=== PATIENT | female | born 1985 | race Caucasian/White ===

== ENCOUNTER → 2017-10-16 | Outpatient (CLI) | payer OTHER ==
[~2017-10-16] MED LIST: PRENTAB26 PO
[2017-10-16 18:05] LABS: PREG INTERNAL NEGATIVE QC NEG CLEAR BACKGROUND; PREG INTERNAL POSITIVE QC POS CONTROL LINE
== END | disposition home or self-care (01) ==
LOC: C.LABMFLN 11:58
PROVIDERS: ATTEND Physician Assistant
DX: N91.2 Amenorrhea, unspecified (principal)

== ENCOUNTER 2017-11-18 18:36 | Emergency (ER) | payer OTHER ==
[~2017-11-18] VITALS: Ht 170.2 cm; Wt 116.3 kg
[2017-11-18 18:38] VITALS: Ht 170.2 cm; Wt 116.3 kg
--- NOTE | 2017-11-18 19:12 | EMERGENCY ROOM VISIT NOTE ---
History Report prepared by Ric: Arun Elias Under the Supervision of: Dr. Celso Plunkett M.D. First contact with patient: 18:49 Chief Complaint: COUGH Stated Complaint: COUGH,TROUBLE BREATHING,NAUSEA,DIZZY Nursing Triage Summary: "For the last week I have been dizzy, lightheaded, and coughing. I think I have the flu." Reports fevers, chills, and body aches at home. Pt is 9 weeks . History of Present Illness The patient is a 31 year old female who presents to the Emergency Room with complaints of a worsening cough that began five days ago. She rates her discomfort as a 5/10 in severity. The patient states that starting five days ago , she has been fatigued, dizzy, and lightheaded. She reports that she has been experiencing a worsening cough that is intermittently productive and tight. The patient states that she also has been intermittently experiencing upper abdominal pain that she describes as a stabbing sensation. She reports that she has been nauseous, but is unsure if it is due to the fact that she is 9 weeks with her second child. The patient states that as she was walking in to the ED, she felt as if she was going to have a syncopal episode. She denies vaginal discharge or bleeding. No chest pain or difficulty breathing Source of History: patient Onset: 5 days ago Position: other (global) Symptom Intensity: 5/10 Quality: other (intermittently productive and tight) Timing: constant Associated Symptoms: + nausea, + abdominal pain, + fatigue Review of Systems See HPI for pertinent positives and negatives. A total of ten systems were reviewed and were otherwise negative. Past Medical & Surgical Medical Problems: (1) 2 Family History Patient reports no known family medical history. Social History Smoking Status: Never Smoker Alcohol Use: occasionally Marital Status: Housing Status: lives with significant other Current/Historical Medications Scheduled Cephalexin Monohydrate (Keflex), 500 MG PO BID Cholecalciferol (Vitamin D3), 2,500 UNITS PO DAILY Multivit/Min/Iron/Fol Ac/Pren ( Vitamin), 1 TAB PO DAILY Scheduled PRN Ondansetron Hcl (Zofran), 4 MG PO Q6H PRN for Nausea Allergies Coded Allergies: No Known Allergies (Unverified , 10/23/13) Physical Exam Vital Signs Date Time Temp Pulse Resp B/P (MAP) Pulse Ox O2 Delivery O2 Flow Rate FiO2 11/18/17 22:37 86 18 143/73 98 11/18/17 21:23 36.8 79 20 134/80 98 Room Air 11/18/17 18:38 99 Room Air 11/18/17 18:38 37.0 98 18 123/78 100 Room Air Physical Exam GENERAL: Awake, alert, well-appearing, in no distress, obese HENT: Normocephalic, Atraumatic. no hemotympanum bilaterally, garza sign negative bilaterally. Oropharynx unremarkable. EYES: Normal conjunctiva. Sclera non-icteric. PERRL bilaterally. EOMI bilaterally. NECK: Supple. No nuchal rigidity. FROM. No JVD. No C-spine tenderness. RESPIRATORY: Clear to auscultation. No wheezes, rhonchi or rales bilaterally. CARDIAC: Regular rate, normal rhythm. Extremities warm and well perfused. Equal palpable radial pulses to the bilateral upper extremities. Equal palpable DP pulses to the bilateral lower extremities. ABDOMEN: Soft, non-distended. No tenderness to palpation. No rebound or guarding. No masses. Rovsig Negative. RECTAL: Deferred. MUSCULOSKELETAL: Chest examination reveals no tenderness. The back is symmetrical on inspection without obvious abnormality. There is no CVA tenderness to palpation. No joint edema. LOWER EXTREMITIES: Calves are equal size bilaterally and non-tender. No edema. No discoloration. NEURO: Normal sensorium. No sensory or motor deficits noted. No pronator drift. No facial droop. No dysarthria. SKIN: No rash or jaundice noted. : Scant discharge from cervix. No dilatation on cervical os. No bleeding. No adnexal or cervical motion tenderness. Medical Decision & Procedures ER Provider Diagnostic Interpretation: Radiology results as stated below per my review and radiologist interpretation: <14 WKS SINGLE CLINICAL HISTORY: abdominal pain nausea TECHNIQUE: Ultrasound COMPARISON STUDY: None FINDINGS: Evidence for a single, viable intrauterine . Estimated gestational age is 9 weeks. heart rate is confirmed. Right ovary measures 2.9 cm at maximum with the left ovary measuring 3.3 cm at maximum. Vascular flow is confirmed bilaterally. There is a 2 cm corpus luteum cyst within the left ovary. IMPRESSION: Single, viable intrauterine estimated at 9 weeks gestational age. Left ovarian corpus luteum cyst. Normal vascular flow is confirmed to both ovaries The above report was generated using voice recognition software. It may contain grammatical, syntax or spelling errors. Electronically signed by: Kali Smith M.D. 11/18/2017 8:19 PM Dictated Date/Time: 11/18/2017 8:15 PM Laboratory Results 11/18/17 19:10 Red Blood Count 4.49, Mean Corpuscular Volume 83.3, Mean Corpuscular Hemoglobin 28.3, Mean Corpuscular Hemoglobin Concent 34.0, Mean Platelet Volume 9.1, Neutrophils (%) (Auto) 61.6, Lymphocytes (%) (Auto) 29.3, Monocytes (%) (Auto) 7.1, Eosinophils (%) (Auto) 1.5, Basophils (%) (Auto) 0.4, Neutrophils # (Auto) 4.84, Lymphocytes # (Auto) 2.30, Monocytes # (Auto) 0.56, Eosinophils # (Auto) 0.12, Basophils # (Auto) 0.03 11/18/17 19:10 Test 11/18/17 00:00 11/18/17 19:10 11/18/17 21:10 Urine Color YELLOW Urine Appearance TURBID (CLEAR) Urine pH 7.0 (4.5-7.5) Urine Specific [place] 1.018 (1.000-1.030) Urine Protein NEG (NEG) Urine Glucose (UA) NEG (NEG) Urine Ketones NEG (NEG) Urine Occult Blood NEG (NEG) Urine Nitrite NEG (NEG) Urine Bilirubin NEG (NEG) Urine Urobilinogen NEG (NEG) Urine Leukocyte Esterase MODERATE (NEG) Urine WBC (Auto) 5-10 /hpf (0-5) Urine RBC (Auto) 0-4 /hpf (0-4) Urine Hyaline Casts (Auto) 1-5 /lpf (0-5) Urine Epithelial Cells (Auto) >30 /lpf (0-5) Urine Bacteria (Auto) 1+ (NEG) White Blood Count 7.86 K/uL (4.8-10.8) Red Blood Count 4.49 M/uL (4.2-5.4) Hemoglobin 12.7 g/dL (12.0-16.0) Hematocrit 37.4 % (37-47) Mean Corpuscular Volume 83.3 fL (80-100) Mean Corpuscular Hemoglobin 28.3 pg (25-34) Mean Corpuscular Hemoglobin Concent 34.0 g/dl (32-36) Platelet Count 220 K/uL (130-400) Mean Platelet Volume 9.1 fL (7.4-10.4) Neutrophils (%) (Auto) 61.6 % Lymphocytes (%) (Auto) 29.3 % Monocytes (%) (Auto) 7.1 % Eosinophils (%) (Auto) 1.5 % Basophils (%) (Auto) 0.4 % Neutrophils # (Auto) 4.84 K/uL (1.4-6.5) Lymphocytes # (Auto) 2.30 K/uL (1.2-3.4) Monocytes # (Auto) 0.56 K/uL (0.11-0.59) Eosinophils # (Auto) 0.12 K/uL (0-0.5) Basophils # (Auto) 0.03 K/uL (0-0.2) RDW Standard Deviation 43.9 fL (36.4-46.3) RDW Coefficient of Variation 14.5 % (11.5-14.5) Immature Granulocyte % (Auto) 0.1 % Immature Granulocyte # (Auto) 0.01 K/uL (0.00-0.02) Anion Gap 6.0 mmol/L (3-11) Est Creatinine Clear Calc Drug Dose 170.9 ml/min Estimated GFR () 139.8 Estimated GFR (Non- 120.6 BUN/Creatinine Ratio 13.0 (10-20) Calcium Level 8.8 mg/dl (8.5-10.1) Human Chorionic Gonadotropin, Quant 93286 mIU/mL Influenza Type A Antigen Neg for Influ A (NEG) Influenza Type B Antigen Neg for Influ B (NEG) Date/Time Source Procedure Growth Status 11/18/17 21:10 Vaginal Swab Trichomonas Preparation - Final Complete Laboratory results reviewed by hi ED Course 1899: The patient was evaluated in room A11B. A complete history and physical exam was performed. 2108: I reevaluated the patient and performed a exam. Her UA results show a possible UTI. I will start her on antibiotics. Serial abdominal exams show no pain on palpation of the abdomen. Ultrasound showed a live intrauterine of a left ovarian cyst. Labs within normal limits. Discussed with the patient given that her lung exam is normal her vitals are stable and her labs are normal we'll not do chest x-ray at this time due to her being . Patient is in agreement. Influenza negative. Patient discharged home prescription Keflex for a symptomatic. In that she is . Return precautions discussed with patient and at bedside. All the questions were answered. Written and verbal discharge instructions given to the patient. Patient agrees with and understands the plan. Medical Decision Her UA results show a possible UTI. I will start her on antibiotics. Serial abdominal exams show no pain on palpation of the abdomen. Ultrasound showed a live intrauterine of a left ovarian cyst. Labs within normal limits. Discussed with the patient given that her lung exam is normal her vitals are stable and her labs are normal we'll not do chest x-ray at this time due to her being . Patient is in agreement. Influenza negative. Patient discharged home prescription Keflex for a symptomatic. In that she is . Return precautions discussed with patient and at bedside. All the questions were answered. Written and verbal discharge instructions given to the patient. Patient agrees with and understands the plan. Medication Reconcilliation Current Medication List: was personally reviewed by me Blood Pressure Screening Patient's blood pressure: Normal blood pressure Impression Primary Impression: UTI in Additional Impressions: Abdominal pain in URI (upper respiratory infection) Scribe Attestation The scribe's documentation has been prepared under my direction and personally reviewed by me in its entirety. I confirm that the note above accurately reflects all work, treatment, procedures, and medical decision making performed by me. The chart was completed utilizing [employer] Speech voice recognition software. Grammatical errors, random word insertions, pronoun errors, and incomplete sentences are an occasional consequence of this system due to software limitations, ambient noise, and hardware issues. Any formal questions or concerns about the content, text, or information contained within the body of this dictation should be directly addressed to the physician for clarification. Departure Information Dispostion Home / Self-Care Prescriptions Cephalexin Monohydrate (Keflex) 500 Mg Cap 500 MG PO BID for 7 Days, #14 CAP Prov: Celso Plunkett M.D. 11/18/17 Referrals Trista James (PCP) Forms HOME CARE DOCUMENTATION FORM, IMPORTANT VISIT INFORMATION Patient Instructions Abdominal Pain - [facility], ED URI Viral, ED UTI Cystitis Female, My [facility] Problem Qualifiers
[2017-11-18 19:24] LABS: BASO % 0.4 %; BASO ABS # 0.03 K/uL (0-0.2); EOS % 1.5 %; EOS ABS # 0.12 K/uL (0-0.5); HEMATOCRIT 37.4 % (37-47); HEMOGLOBIN 12.7 g/dL (12.0-16.0); IG# 0.01 K/uL (0.00-0.02); LYMPH % 29.3 %; MEAN CELL VOLUME 83.3 fL (80-100); MEAN CORPUSCULAR HEMOGLOBIN 28.3 pg (25-34); MEAN PLATELET VOLUME 9.1 fL (7.4-10.4); MONO % 7.1 %; MONO ABS # 0.56 K/uL (0.11-0.59); NEUT % 61.6 %; NEUT ABS # 4.84 K/uL (1.4-6.5); PLATELET COUNT 220 K/uL (130-400); RED CELL DISTRIBUTION WIDTH CV 14.5 % (11.5-14.5); RED CELL DISTRIBUTION WIDTH SD 43.9 fL (36.4-46.3); WHITE BLOOD COUNT 7.86 K/uL (4.8-10.8)
[2017-11-18] MEDS ORDERED: CHOL1000 PO (19:24)
[2017-11-18] MEDS ORDERED: ONDA4TAB46 PO (19:26)
[2017-11-18 19:43] LABS: CALCIUM 8.8 mg/dl (8.5-10.1); CREATININE 0.64 mg/dl (0.60-1.20); POTASSIUM 3.5 mmol/L (3.5-5.1)
[2017-11-18 20:16] LABS: INFLUENZA B ANTIGEN Neg for Influ B (NEG)
--- NOTE | 2017-11-18 20:20 | DIAGNOSTIC IMAGING REPORT ---
<14 WKS SINGLE CLINICAL HISTORY: abdominal pain nausea TECHNIQUE: Ultrasound COMPARISON STUDY: None FINDINGS: Evidence for a single, viable intrauterine . Estimated gestational age is 9 weeks. heart rate is confirmed. Right ovary measures 2.9 cm at maximum with the left ovary measuring 3.3 cm at maximum. Vascular flow is confirmed bilaterally. There is a 2 cm corpus luteum cyst within the left ovary. IMPRESSION: Single, viable intrauterine estimated at 9 weeks gestational age. Left ovarian corpus luteum cyst. Normal vascular flow is confirmed to both ovaries The above report was generated using voice recognition software. It may contain grammatical, syntax or spelling errors. Electronically signed by: Kali Smith M.D. 11/18/2017 8:19 PM Dictated Date/Time: 11/18/2017 8:15 PM
[2017-11-18 21:23] VITALS: TEMP 36.8
[2017-11-18] MEDS ORDERED: CEPH500C PO (21:58)
[2017-11-18 22:37] VITALS: BP 143/73; PULSE 86; O2SAT 98
== END 2017-11-18 22:26 | disposition home or self-care (01) ==
LOC: C.EDB 18:37 → C.EDA 22:26
DX: O23.91 Unspecified genitourinary tract infection in pregnancy, first trimester (principal); O99.511 Diseases of the respiratory system complicating pregnancy, first trimester; J06.9 Acute upper respiratory infection, unspecified; R10.9 Unspecified abdominal pain; Z3A.09 9 weeks gestation of pregnancy

== ENCOUNTER → 2017-11-27 | Outpatient (CLI) | payer OTHER ==
[~2017-11-27] MED LIST changes: +CHOL1000 PO; +ONDA4TAB46 PO
== END | disposition home or self-care (01) ==
LOC: C.PAPS 13:55
PROVIDERS: ATTEND Obstetrics & Gynecology
DX: Z12.4 Encounter for screening for malignant neoplasm of cervix (principal)

== ENCOUNTER → 2017-11-27 | Outpatient (CLI) | payer OTHER ==
[2017-11-27 13:11] LABS: BASO % 0.2 %; BASO ABS # 0.01 K/uL (0-0.2); EOS % 1.3 %; EOS ABS # 0.08 K/uL (0-0.5); HEMATOCRIT 39.9 % (37-47); HEMOGLOBIN 13.5 g/dL (12.0-16.0); IG# 0.01 K/uL (0.00-0.02); LYMPH % 29.4 %; LYMPH ABS # 1.85 K/uL (1.2-3.4); MEAN CELL VOLUME 83.6 fL (80-100); MEAN CORPUSCULAR HEMOGLOBIN 28.3 pg (25-34); MEAN CORPUSCULAR HGB CONC 33.8 g/dl (32-36); MEAN PLATELET VOLUME 9.4 fL (7.4-10.4); MONO % 5.4 %; MONO ABS # 0.34 K/uL (0.11-0.59); NEUT % 63.5 %; NEUT ABS # 4.01 K/uL (1.4-6.5); PLATELET COUNT 237 K/uL (130-400); RED CELL DISTRIBUTION WIDTH CV 14.7 % (11.5-14.5); RED CELL DISTRIBUTION WIDTH SD 45.3 fL (36.4-46.3)
== END | disposition home or self-care (01) ==
LOC: C.LAB1850 10:30
PROVIDERS: ATTEND Obstetrics & Gynecology
DX: Z34.81 Encounter for supervision of other normal pregnancy, first trimester (principal); Z31.438 Encounter for other genetic testing of female for procreative management; Z3A.00 Weeks of gestation of pregnancy not specified

== ENCOUNTER → 2017-12-15 | Outpatient (CLI) | payer OTHER ==
[2017-12-15 19:43] LABS: INFLUENZA A PCR POS for Influ A (NEG); INFLUENZA B PCR Neg for Influ B (NEG)
== END | disposition home or self-care (01) ==
LOC: C.LABMFLN 17:46
PROVIDERS: ATTEND Physician Assistant
DX: R11.0 Nausea (principal)

== ENCOUNTER → 2018-01-08 | Outpatient (CLI) | payer OTHER | END | disposition home or self-care (01) | LOC: C.LAB1850 10:00 | PROVIDERS: ATTEND Obstetrics & Gynecology | DX: Z34.82 Encounter for supervision of other normal pregnancy, second trimester (principal) ==

== ENCOUNTER → 2018-06-01 | Outpatient (CLI) | payer OTHER | END | disposition home or self-care (01) | LOC: C.LABSPEC 15:38 | PROVIDERS: ATTEND Obstetrics & Gynecology | DX: Z34.83 Encounter for supervision of other normal pregnancy, third trimester (principal) ==

== ENCOUNTER 2018-06-23 08:07 | Inpatient (IN) | payer OTHER ==
[~2018-06-23] VITALS: Ht 170.2 cm; Wt 114.5 kg
[2018-06-23] MEDS ORDERED: LACTATED RINGER'S 1000ML 1,000 ML IV SCH (08:34)
[2018-06-23] MEDS ORDERED: LACTATED RINGER'S 1000ML 1,000 ML IV PRN (08:34)
[2018-06-23 09:07] LABS: HEMATOCRIT 36.9 % (37-47); MEAN CELL VOLUME 83.5 fL (80-100); MEAN CORPUSCULAR HEMOGLOBIN 27.1 pg (25-34); MEAN CORPUSCULAR HGB CONC 32.5 g/dl (32-36); MEAN PLATELET VOLUME 9.7 fL (7.4-10.4); PLATELET COUNT 246 K/uL (130-400); RED CELL DISTRIBUTION WIDTH CV 14.9 % (11.5-14.5); RED CELL DISTRIBUTION WIDTH SD 45.1 fL (36.4-46.3); WHITE BLOOD COUNT 8.55 K/uL (4.8-10.8)
[2018-06-23] MEDS ORDERED: BUPIVACAINE 0.25% 30 ML VIAL ONE ×2 (09:35→12:55)
[2018-06-23] MEDS ORDERED: FENTANYL 2MCG/ML ROPIV 1.25MG/ML 100ML BAG ONE (09:36)
[2018-06-23] MEDS ORDERED: FENTANYL CITRATE INJ 50 MCG/1 ML 2 ML VIAL ONE ×2 (09:36→12:56)
[2018-06-23] MEDS ORDERED: EpHEDrine SULFATE INJ 50 MG/ML AMP ONE (09:36)
[2018-06-23] MEDS ORDERED: OXYTOCIN 30 UNITS/500ML NSS IV ONE (09:38)
[2018-06-23] MEDS ORDERED: LACTATED RINGER'S 1000ML 500 ML IV PRN ×2 (10:32→10:43)
[2018-06-23] MEDS ORDERED: NALOXONE HCL INJ 1 MG in SODIUM CHLORIDE 0.9% 1000ML 1,000 ML IV PRN (10:32)
[2018-06-23] MEDS ORDERED: NALBUPHINE HCL INJ 10 MG/ML 1ML AMP IV PRN (10:45)
[2018-06-23] MEDS ORDERED: NALOXONE HCL INJ 0.4 MG/1 ML VIAL/CARP IV PRN (10:45)
[2018-06-23] MEDS ORDERED: FENTANYL 2MCG/ML ROPIV 1.25MG/ML 100ML BAG EPI PRN (10:45)
[2018-06-23] MEDS ORDERED: DiphenhydrAMINE HCL 50 MG/ML VIAL IV PRN (10:45)
[2018-06-23] MEDS ORDERED: ONDANSETRON INJ 2 MG/ML 2 ML VIAL IV PRN (10:45)
[2018-06-23] MEDS ORDERED: OXYTOCIN 30 UNITS/500ML NSS IV PRN ×2 (10:45→14:15)
[2018-06-23] MEDS ORDERED: EpHEDrine SULFATE INJ 50 MG/ML AMP IV PRN (10:45)
[2018-06-23 11:27] VITALS: Ht 170.2 cm; Wt 114.5 kg
[2018-06-23] MEDS ORDERED: METHYLERGONOVINE MALEATE 0.2 MG/ML AMP ONE (13:59)
[2018-06-23] MEDS ORDERED: METHYLERGONOVINE MALEATE 0.2 MG/ML AMP IM ONE (14:15)
[2018-06-23] MEDS ORDERED: OXYTOCIN INJ 10 UNITS/ML VIAL IM ONE (14:15)
[2018-06-23] MEDS ORDERED: ACETAMINOPHEN 325 MG TAB PO PRN (14:15)
[2018-06-23] MEDS ORDERED: SUPERCREAM 0.870 % 15GM JAR EXT PRN (14:15)
[2018-06-23] MEDS ORDERED: MISOPROSTOL 200 MCG TAB PR SCH (14:15)
[2018-06-23] MEDS ORDERED: LANOLIN OINT EXT PRN (14:15)
[2018-06-23] MEDS ORDERED: ACETAMINOPHEN/CODEINE 300/30MG TAB PO PRN ×2 (14:15)
[2018-06-23] MEDS ORDERED: HYDROCORTISONE ACETATE 25 MG SUPP PR PRN (14:15)
[2018-06-23] MEDS ORDERED: BENZOCAINE 20% AER SPR 82.5 GM CAN EXT PRN (14:15)
[2018-06-23] MEDS ORDERED: MISOPROSTOL 200 MCG TAB ONE (14:20)
--- NOTE | 2018-06-23 16:22 | DELIVERY SUMMARY ---
DATE OF OPERATION: 06/23/2018 FINDINGS: A viable male with Apgars of 8 and 9. Baby delivered over midline second degree laceration. Nuchal cord x1 reduced on the perineum. Cord gasses and cord blood samples obtained. Cord donation kit collected. Placenta delivered spontaneously. atony treated with IM Pitocin, IM methergine, and rectal Cytotec. ESTIMATED BLOOD LOSS: 500 mL. LABOR NOTE: The patient is a 32-year-old 2, para 1, with an EDC of 06/22/2018 at 40+ weeks gestational age, who presented to Labor and Delivery on the day of delivery with a complaint of contractions. Patient states that contractions began at approximately 0400 hours on the day of delivery. She did not rupture her membranes or vaginal bleeding. Patient's course had been remarkable for a third trimester bradycardia, baseline heart rate tracings. The patient had weekly nonstress test, which were reassuring. Laboratory values for showed a blood type of A negative, antibody negative. She received RhoGAM on 04/04/2018. She is hepatitis B negative and HIV negative. She had a negative cell-free DNA screening with a negative maternal serum AFP. She had a normal 1-hour Glucola x2 and a negative third trimester beta strep culture. Upon admission, patient was 5 cm dilated, 80% effaced, -2 station. Tracing was category 1. Patient was uncomfortable. Anesthesia was consulted, and an epidural was placed. Following placement of the epidural, the patient had artificial rupture of membranes for a light green fluid. Tracing was category 2, moderate variability with accelerations. The contractions had spaced out after the epidural, and the Pitocin augmentation was initiated. While the heart rate tracing was category 2, it did run a low baseline in the 110s through the majority of the labor. The patient progressed to an anterior lip and had an uncontrollable urge to push. As such, the cervix was manually reduced to allow the second stage to begin. The patient pushed for approximately 40 minutes delivering the viable male infant. Cord was clamped and cut. Cord gasses and cord blood samples obtained. Cord blood donation kit was collected, and the placenta was delivered spontaneously. With delivery, the patient had lost her IV and had some significant atony. This was treated with manual massage and IM Pitocin as well as methergine. She then received Cytotec 800 mcg rectally. The uterus firmed up. Midline second-degree laceration was repaired with 4-0 Vicryl in a routine fashion. Estimated blood loss was 500 mL. Sponge and needle counts were correct. I attest to the content of the Intraoperative Record and any orders documented therein. Any exception s are noted below.
--- NOTE | 2018-06-23 16:32 | Anesthesia Procedure Note ---
Anesthesia Epidural Removal Nt Date & Time Jun 23, 2018 at 16:31 Vital Signs Pain Intensity: 4.0 Notes Mental Status: alert / awake / arousable, participated in evaluation Nausea / Vomiting: adequately controlled Pain: adequately controlled Airway Patency, RR, SpO2: stable & adequate BP & HR: stable & adequate Hydration State: stable & adequate Neuraxial Anesthesia: was administered Anesthetic Complications: no major complications apparent, pt satisfied with anesthetic care Epidural: removed without complications, with tip intact
[2018-06-23 19:15] VITALS: BP 116/74; PULSE 93; TEMP 37
[2018-06-23] MEDS: DOCUSATE SODIUM 100 MG CAP PO SCH (19:25)
[2018-06-23] MEDS: IBUPROFEN 600 MG TAB PO PRN (22:27)
[2018-06-23 23:15] VITALS: BP 112/70; PULSE 84; TEMP 36.8
[2018-06-24 04:05] VITALS: BP 108/68; PULSE 76; TEMP 36.6
[2018-06-24 07:30] VITALS: BP 117/73; PULSE 76; TEMP 36.7
[2018-06-24] MEDS: DOCUSATE SODIUM 100 MG CAP PO SCH ×2 (07:32→20:16)
[2018-06-24] MEDS: FERROUS SULFATE 325 MG TAB PO SCH (07:33)
[2018-06-24] MEDS: IBUPROFEN 600 MG TAB PO PRN ×2 (07:33→18:40)
[2018-06-24 07:58] LABS: HEMOGLOBIN 10.4 g/dL (12.0-16.0)
--- NOTE | 2018-06-24 08:21 | Progress Note ---
Subjective Jun 24, 2018. Subjective conversation w/ patient, physical exam Ambulation: ambulating normally Feeding Type: Breast Feeding Objective Vital Signs Date Time Temp Pulse Resp B/P (MAP) Pulse Ox O2 Delivery O2 Flow Rate FiO2 06/24/18 07:30 36.7 76 18 117/73 (88) Room Air 06/24/18 04:05 36.6 76 18 108/68 (81) Room Air 06/23/18 23:15 36.8 84 18 112/70 (84) Room Air 06/23/18 23:15 Room Air 06/23/18 19:15 37.0 93 18 116/74 (88) Room Air 06/23/18 19:15 Room Air Physical Exam General Appearance: WELL-APPEARING, NO APPARENT DISTRESS Fundus: Firm, Non-Tender Extremities: no calf tenderness Laboratory Results Last 24 Hours Test 06/23/18 08:48 06/24/18 07:28 White Blood Count 8.55 K/uL Red Blood Count 4.42 M/uL Hemoglobin 12.0 g/dL 10.4 g/dL Hematocrit 36.9 % 32.0 % Mean Corpuscular Volume 83.5 fL Mean Corpuscular Hemoglobin 27.1 pg Mean Corpuscular Hemoglobin Concent 32.5 g/dl RDW Standard Deviation 45.1 fL RDW Coefficient of Variation 14.9 % Platelet Count 246 K/uL Mean Platelet Volume 9.7 fL Assessment and Plan Problem List Medical Problems: (1) Abdominal pain affecting Status: Acute (2) Abdominal pain in Status: Acute (3) URI (upper respiratory infection) Status: Acute (4) UTI in Status: Acute Post- Day#: 1 Continue Routine Care: - routine care - doing well
[2018-06-24 12:45] VITALS: BP 124/76; PULSE 80; TEMP 36.7
[2018-06-24 15:25] VITALS: BP 117/75; PULSE 84; TEMP 37
[2018-06-24 17:45] VITALS: BP_DIAS 75; PULSE 84; TEMP 37
[2018-06-24] MEDS ORDERED: BISACODYL 5 MG TABEC PO SCH (20:00)
[2018-06-24 23:10] VITALS: BP 131/93; PULSE 77; TEMP 37.3; O2SAT 98
--- NOTE | 2018-06-25 06:51 | Progress Note ---
Subjective Jun 25, 2018. Subjective conversation w/ patient, physical exam Ambulation: ambulating normally Voiding: no voiding problems Passing Gas: Yes Diet Tolerance: Regular Diet Lochia: Small Feeding Type: Breast Feeding Pain: 2/10 improving Review of Systems Constitutional: No fever, No chills, No sweats Respiratory: No cough, No sputum, No wheezing Cardiac: No chest pain, No palpitations Abdomen: No pain, No nausea, No vomiting Female : No dysuria Objective Vital Signs Date Time Temp Pulse Resp B/P (MAP) Pulse Ox O2 Delivery O2 Flow Rate FiO2 06/24/18 23:10 37.3 77 16 131/93 (106) 98 Room Air 06/24/18 23:10 98 Room Air 06/24/18 17:45 37.0 84 18 06/24/18 15:25 37.0 84 18 117/75 (89) Room Air 06/24/18 15:25 Room Air 06/24/18 12:45 36.7 80 20 124/76 (92) 06/24/18 07:30 36.7 76 18 117/73 (88) Room Air Physical Exam General Appearance: WELL-APPEARING, NO APPARENT DISTRESS Respiratory/Chest: chest non-tender, no respiratory distress Cardiovascular: regular rate, rhythm, no murmur Abdomen: normal bowel sounds Fundus: Firm, Relation to Umbilicus (below) Extremities: non-tender, no calf tenderness Laboratory Results Last 24 Hours Test 06/24/18 07:28 Hemoglobin 10.4 g/dL Hematocrit 32.0 % Medications Current Inpatient Medications Medications (Trade) Dose Ordered Sig/Janes Route Start Time Stop Time Status Last Admin Dose Admin Lactated Ringer's 1,000 ml @ 125 mls/hr Q8H IV 06/23/18 08:34 06/25/18 08:33 06/23/18 09:44 125 MLS/HR Lactated Ringer's 1,000 ml @ 999 mls/hr Q1H1M PRN IV 06/23/18 08:34 07/23/18 08:33 06/23/18 09:20 999 MLS/HR Oxytocin (Pitocin IV) 30 units UD PRN IV 06/23/18 10:45 07/23/18 10:44 06/23/18 10:57 30 UNITS Lactated Ringer's 500 ml @ 999 mls/hr Q31M PRN IV 06/23/18 10:43 07/23/18 10:42 Oxytocin (Pitocin IV) 30 units UD PRN IV 06/23/18 14:15 07/23/18 14:14 Benzocaine (Dermoplast Aero Spr) 1 appln PRN PRN EXT 06/23/18 14:15 07/23/18 14:14 06/23/18 19:25 82.5 APPLN Cocaine HCl (Supercream 0.870% Cr) BID PRN EXT 06/23/18 14:15 07/07/18 14:14 06/23/18 19:25 15 GM Hydrocortisone Acetate (Anusol Hc Supp) 25 mg BID PRN SC 06/23/18 14:15 07/23/18 14:14 Lanolin (Lanolin Oint) PRN PRN EXT 06/23/18 14:15 07/23/18 14:14 Ibuprofen (Motrin Tab) 600 mg Q4H PRN PO 06/23/18 14:15 07/23/18 14:14 06/24/18 18:40 600 MG Acetaminophen (Tylenol Tab) 650 mg Q6H PRN PO 06/23/18 14:15 07/23/18 14:14 Acetaminophen/ Codeine Phosphate (Tylenol w/ Codeine #3 Tab) 1 tab Q4H PRN PO 06/23/18 14:15 07/23/18 14:14 Acetaminophen/ Codeine Phosphate (Tylenol w/ Codeine #3 Tab) 2 tab Q4H PRN PO 06/23/18 14:15 07/23/18 14:14 Docusate Sodium (coLACE CAP) 100 mg BID PO 06/23/18 20:00 07/23/18 19:59 06/24/18 20:16 100 MG Ferrous Sulfate (Feosol Tab) 325 mg DAILY PO 06/24/18 08:00 07/24/18 07:59 06/24/18 07:33 325 MG Assessment and Plan Problem List Medical Problems: (1) Abdominal pain affecting Status: Acute (2) Abdominal pain in Status: Acute (3) URI (upper respiratory infection) Status: Acute (4) UTI in Status: Acute Post- Day#: 2 Continue Routine Care: 32 yo PPD2 s/p -AFVSS, Pt doing well resting comfortably with baby -no si/sx of anemia -Plan is to breast feed -Tolerating regular diet, no n/v -Continue to encourage ambulation -Routine care -Provided Discharge Counseling regarding vaginal bleeding, fever, f/u 6 weeks, no heavy lifting for 2-3 weeks, breast feeding, taking pre-barbara vitamin, and nothing in the vagina for 6 weeks (tampons, douching, intercourse) Resident Physician Supervision Note: I interviewed and examined the patient. Discussed with Dr. Deleon and agree with findings and plan as documented in the note. Any exceptions or clarifications are listed here: [None] Documented By: Anthony Ansari Resident Tracking Resident Involvement: Resident Care Provided Care Provided: Adult Hospital Medicine
[2018-06-25 07:30] VITALS: BP 109/67; PULSE 76; TEMP 36.7; O2SAT 99
[2018-06-25] MEDS: DOCUSATE SODIUM 100 MG CAP PO SCH (07:34)
[2018-06-25] MEDS: FERROUS SULFATE 325 MG TAB PO SCH (07:35)
--- NOTE | 2018-06-25 07:40 | Discharge Instructions ---
Discharge Instructions Date of Service Jun 25, 2018. Admission Reason for Admission: Check Labor Discharge Discharge Diagnosis / Problem: Discharge Goals Goal(s): Routine recovery after delivery Medications Continue Dispensed Medications: supercream, dermaplast, tucks Activity Recommendations Activity Limitations: per Instructions/Follow-up section . Instructions / Follow-Up Instructions / Follow-Up ACTIVITY RECOMMENDATIONS: * Gradual return to full activity over the next 2-3 weeks. * No lifting - nothing heavier than baby over the next 2-3 weeks. * Do not engage in vigorous exercise, sexual activity or sports until cleared by your physician. * Do not drive or operate any motorized equipment until cleared by your physician. * You may shower/bathe daily. MEDICATIONS: For discomfort or pain, you may use Acetaminophen (Tylenol), Ibuprofen (Advil), or Naproxen (Aleve) following the package directions. For constipation you may use Colace following the package directions. BREAST CARE: If you are not breast feeding: * Wear a supportive bra 24 hours a day for one to two weeks. * Avoid stimulating your breasts and nipples as much as possible during the first few weeks after delivery. * When taking a shower, have the warm water hit your back, not breasts. * When your breasts feel full, apply ice packs. Usually three to four times a day helps ease the discomfort. * Take a mild pain medication (Tylenol / Motrin) when you are uncomfortable. If breast feeding: * Use breast milk to lubricate nipples. Lansinoh cream may be used for sore nipples. You do not need to remove cream prior to breast feeding. If using a different brand of cream, check the label for directions regarding removal of cream prior to nursing. * Wear a supportive bra. * If having problems with breasts or breast feeding, call a treasury consultant or your health care provider. EPISIOTOMY CARE: After delivery, if you have an episiotomy (stitches), the following steps will ease discomfort and aid healing. * For the first 24 hours after delivery, place ice packs next to your episiotomy to help reduce swelling. * After the first 24 hour-period, sitz baths, either portable or in the tub, are suggested. A shower with a shower arm sprayed over the episiotomy may be comforting. * Susan care should be done after each voiding and bowel movement. Squirt warm water from a plastic bottle over the perineum (region of the body between the anus and urinary opening) and pat dry. * Use Dermoplast to ease discomfort. Shake container. Lamar directly over the episiotomy. Place a Tucks on a clean sanitary pad next to your episiotomy. SPECIAL CARE INSTRUCTIONS: When you are discharged from the hospital, it is important for you to follow the instructions listed below: * During the first week at home, you should be able to care for yourself and your baby. In addition, the usual light household activities are encouraged. * Limit your activities to the way you feel. Do not try to clean the house or move furniture. Be sensible. * If you actively engage in sports and have done so up until the time of your delivery, you may resume these activities as soon as you feel able. This may take up to one month or even longer. Use good judgment. * Continue to take your vitamins for at least six weeks after the of your baby. * Your diet need not be limited unless you were on a special diet before your delivery. Breast-feeding mothers need around 2500 calories per day and at least 64-80 ounces of fluid per day (8 to 10 glasses). * You should eat foods from the four major food groups. Crash diets or fad diets are to be avoided. Eating lean meats, fresh fruits and vegetables, low-fat dairy products, high fiber foods and a regular exercise program, will help you get back to your pre- weight without putting your health at risk. * Constipation is sometimes a problem after delivery. Take a mild laxative as needed. If breast feeding, Milk of Magnesia is acceptable to use. You may use a suppository or Fleets enema if no episiotomy. * A daily shower or tub bath is suggested. Be sure to thoroughly and gently dry the perineum. * A bloody vaginal discharge will usually continue until around four weeks post . A small amount of bleeding may continue for as long as six weeks. Vaginal discharge changes from the bright red bleeding after delivery to pink then brownish and finally yellowish-pink before becoming white and disappearing. * Bleeding may increase with activity. Your first period may come in 4-8 weeks. If you are breast feeding, your period may be delayed even longer. * [place] (sex) can begin whenever both you and your partner feel comfortable and do not have any form of genital infection. It is recommended that you wait at least six weeks for internal and external healing to occur. If you have questions, please talk to your health care practitioner. A condom should be used to prevent infection and . * Foreplay, gentle intercourse and lubrication is very important the first several times to prevent pain. A water-based lubricant such as K-Y jelly or Astroglide may be used. * If you have RH negative blood and your baby is RH positive, you will receive RHOGAM by injection prior to discharge. The nurse will give you a card to keep with you that has the date and place that you received RHOGAM after delivery. * During your care, you had a Rubella screen done to check for the presence of rubella antibodies in your blood. If your test was negative, you will receive a Rubella vaccine prior to discharge. This vaccine may cause a fever, soreness at the injection site and flu-like symptoms. If these symptoms persist, notify your health care practitioner. is not advised for one month after a Rubella vaccine. * Verbalizes understanding of car seat law as reviewed with patient nursing. * Car Seat hand-out given and reviewed with patient by nursing. * Shaken baby information reviewed with patient by nursing. Call you doctor if: * Heavy bleeding (saturating several pads an hour) or passing clots the size of your fist. * A fever >101 degrees F (38.3 degrees C) on two occasions four hours apart and /or chills. * Unusual pain in the pelvic or vaginal areas. * "Baby Blues" lasting longer than two weeks. If you have any questions or concerns, call your health care practitioner at . FOLLOW UP VISIT: * Please call the office at to schedule a 6 week examination. It is important you keep this appointment. It is important for you to make arrangements for either yearly or twice yearly check-ups thereafter. Current Hospital Diet Patient's current hospital diet: Regular OB Diet Discharge Diet Recommended Diet: Regular OB Diet Pending Studies Studies pending at discharge: no Medical Emergencies . Who to Call and When: Medical Emergencies: If at any time you feel your situation is an emergency, please call 911 immediately. . Non-Emergent Contact Non-Emergency issues call your: [employer] Project Manager Call Non-Emergent contact if: temperature is above 100.5 . . "Provider Documentation" section prepared by David Deleon. . Resident Tracking Resident Involvement: Resident Care Provided Care Provided: Adult [facility]
[2018-06-25 08:00] VITALS: BP 119/74; PULSE 74; TEMP 36.6; O2SAT 97
[2018-06-25 10:05] VITALS: BP_DIAS 74; PULSE 74; TEMP 36.6
== END 2018-06-25 12:35 | disposition home or self-care (01) | DRG 775 ==
LOC: C.OPB 08:07 → C.LD 08:08 → C.OPB 08:36 → C.LD 08:36 → C.OBG 19:18
PROVIDERS: ADMIT Obstetrics & Gynecology; ATTEND Obstetrics & Gynecology
PROC: 0KQM0ZZ Repair Perineum Muscle, Open Approach (ICD-10-PCS; principal; 2018-06-23)
PROC: 10E0XZZ Delivery of Products of Conception, External Approach (ICD-10-PCS; principal; 2018-06-23)
DX: O99.214 Obesity complicating childbirth (principal); E66.01 Morbid (severe) obesity due to excess calories; O70.1 Second degree perineal laceration during delivery; O69.81X0 Labor and delivery complicated by cord around neck, without compression, not applicable or unspecified; Z68.39 Body mass index [BMI] 39.0-39.9, adult; Z37.0 Single live birth; Z3A.40 40 weeks gestation of pregnancy

== ENCOUNTER 2025-06-04 21:14 | Observation (INO) ==
--- NOTE | 2025-06-04 21:34 | Emergency Department Note ---
History of Present Illness General Chief complaint: Headache Stated complaint: HEADACHE, ARM NUMBNESS Time Seen by Provider: 06/04/25 21:20 History of Present Illness This is a 39-year-old female presenting to the emergency department through triage for evaluation of headache and left arm numbness. 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 This was fairly significant and rated a 6/10. Patient then began having difficulty focusing her vision, followed by numbness into her left arm. The symptoms began at roughly 8:30 PM, roughly 45 minutes prior to arrival. Patient did have her blood pressure checked by one of her colleagues, and she states that it was elevated. She does not have any recent travel history. No significant neck or chest pain. She may have some palpitations. No nausea or vomiting. Last menstrual period was 1 week ago. No significant family history. As symptoms just began she has not taken anything [id number] for symptoms. Home Medications Medication Instructions Recorded Confirmed Type acetaminophen 325 mg tablet 325 mg PO QID PRN Pain 03/06/25 06/04/25 History ibuprofen 200 mg tablet 200 mg PO TID PRN Pain 03/06/25 06/04/25 History escitalopram oxalate 10 mg tablet 10 mg PO QAM 06/04/25 06/04/25 History Allergies Allergy/AdvReac Type Severity Reaction Status Date / Time No Known Allergies Allergy Verified 06/04/25 22:54 Past Med/Surg History Problem List (Updated 06/05/25 @ 00:55 by Daryl Valle PA-C) Visual disturbance (Acute) Headache (Acute) Left arm numbness (Acute) Hypokalemia Left arm numbness Headache Menorrhagia Obstructive sleep apnea GERD (gastroesophageal reflux disease) Graves' disease in remission Increased endometrial stripe thickness Endometrial polyp Thyroid nodule Hyperthyroidism PAC (premature atrial contraction) Palpitations Iron deficiency Morbid obesity Vitamin D deficiency Dyslipidemia Depression Anxiety Medical History Anxiety and depression hx- denies current issues Dyslipidemia diet controlled, no meds Hx of iron deficiency denies currently History of palpitations r/t graves disease; discharged from [facility] History of thyroid nodule was being monitored; stable Graves' disease in remission GERD (gastroesophageal reflux disease) stable JERO (obstructive sleep apnea) CPAP nightly History of COVID-19 ~12/2021- no hosp; resolved History of varicella childhood Surgical History S/P right knee arthroscopy x 2, 2011 & approx 2016 S/P wisdom tooth extraction S/P appendectomy Family History Grandmother (Maternal) Anxiety Colorectal cancer Depression Osteoporosis Dyslipidemia Grandfather (Maternal) Colorectal cancer Coronary heart disease Myocardial infarction, Onset Age: 39 S/P CABG (coronary artery bypass graft) Hypertension Grandmother (Paternal) Breast cancer Dyslipidemia Father Cancer Oral Agent orange exposure Oral cancer Grandfather (Paternal) Hypertension Heart disease Mother Ovarian cyst Bladder cancer Kidney stone Dyslipidemia Endometriosis Other Family history of multiple gestation Denies family history of Ovarian cancer Prostate cancer Social History Smoking Status: Never smoker Second Hand Exposure: Yes (hx); Do You Dip or Chew Tobacco: No; Hx Alcohol Use: Yes Alcohol Intake Frequency: Monthly or Less Hx Substance Use: No Preferred Language: Irish Communication Ability: Effective Visual Impairment: No Limitations Hearing Ability: Normal 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 Beliefs That Will Affect Care: None marital status: Current Living Situation: Spouse and Family Current Living Situation Comment: Lives , 2 sons current occupational status: employed current occupation: Asphalt Spreader Operator/[employer] How many Children do You have: 2 Feels Safe at Home: Yes Childhood Exposure to Second-Hand Smoke: Yes Diet: regular Diet Comment: regular caffeine: Yes during the past year weight has: remained stable Dental Care, Regularly: No Physical Activity Frequency: Daily Physical Activity Frequency Comment: working- taking care of children Seatbelt Use: always Sunscreen Use: Yes Sexual Activity: has been sexually active within the last 12 months Assistive Devices: Contacts, CPAP and Glasses Review of Systems A total of 10 systems reviewed and were otherwise negative Physical Exam Vital Signs Vital Signs - 24 hr 06/04/25 21:15 06/04/25 22:05 06/04/25 22:30 Temperature 36.6 C Temperature Source Temporal Artery Scan Pulse Rate 89 83 73 Pulse Rate [Apical] Pulse Rate from SpO2 Sensor 73 Pulse Rhythm Regular Pulse Strength Normal Respiratory Rate 18 17 Respiratory Effort / Characteristics Non-Labored Spontaneous Respiratory Depth Normal Respiratory Pattern Regular Blood Pressure 156/86 H 125/75 Blood Pressure [Right Arm] Blood Pressure Mean 109 91 Blood Pressure Mean [Right Arm] Blood Pressure Position Sitting Blood Pressure Position [Right Arm] Pulse Oximetry 97 99 Oxygen Delivery Method Room Air Room Air Sepsis Recent Fever Within 48 Hours No Sepsis New/Unexplained Change in Mental Status N/A Sepsis Action Taken by Nursing No Action Required 06/04/25 23:26 Temperature Temperature Source Pulse Rate Pulse Rate [Apical] 70 Pulse Rate from SpO2 Sensor Pulse Rhythm Pulse Strength Respiratory Rate 20 Respiratory Effort / Characteristics Non-Labored Spontaneous Respiratory Depth Normal Respiratory Pattern Regular Blood Pressure Blood Pressure [Right Arm] 135/77 Blood Pressure Mean Blood Pressure Mean [Right Arm] 96 Blood Pressure Position Blood Pressure Position [Right Arm] Semi-fowlers Pulse Oximetry 97 Oxygen Delivery Method Room Air Sepsis Recent Fever Within 48 Hours Sepsis New/Unexplained Change in Mental Status Sepsis Action Taken by Nursing VITALS: Vitals are noted on the nurse's note and reviewed by myself. Vital signs stable. GENERAL: Well-developed, well-nourished, white female, who is in no acute distress and resting comfortably. Patient is cooperative with the examination. HEAD: Normocephalic atraumatic. NECK: Supple without nuchal rigidity. No lymphadenopathy. No thyromegaly. Cervical spine is nontender. HEART: Regular rate and rhythm without murmurs gallops or rubs. LUNGS: Clear to auscultation bilaterally without wheezes, rales or rhonchi. No retractions or accessory muscle use. ABDOMEN: Positive normal bowel sounds x 4. Soft, nontender, without masses or organomegaly. No guarding or rebound tenderness. MUSCULOSKELETAL: No muscle atrophy, erythema, or edema noted. Full range of motion in all extremities. No tenderness to palpation. NEURO: Patient was alert and oriented to person place and time. CN II through XII grossly intact. No focal neurological deficits. GCS 15. SKIN: The skin was without rashes, erythema, edema, or bruising. Capillary refill less than 2 seconds. Course Administered Medications Discontinued Medications Aspirin (Aspirin Chew 324 Mg) 324 mg PO NOW STA Stop: 06/05/25 00:18 Last Admin: 06/05/25 00:34 Dose: 324 mg Documented By: EMB Acetaminophen (Ofirmev) 1,000 mg in 100 mls @ 400 mls/hr IV NOW STA Stop: 06/04/25 21:43 Last Infusion: 06/04/25 22:10 Dose: Infused Documented By: Admin: 06/04/25 21:54 Dose: 400 mls/hr Documented By: HAO Sodium Chloride (Nss) 1,000 mls @ 999 mls/hr IV .Q1H1M ONE Stop: 06/04/25 22:29 Last Infusion: 06/04/25 23:41 Dose: Infused Documented By: Admin: 06/04/25 21:55 Dose: 999 mls/hr Documented By: HAO Ondansetron HCl (Ondansetron Inj 2 Mg/Ml 2 Ml Vial) 4 mg IV NOW STA Stop: 06/04/25 21:30 Last Admin: 06/04/25 21:54 Dose: 4 mg Documented By: HAO Potassium Chloride (Potassium Chloride Crtab 20 Meq Tabcr) 40 meq PO NOW STA Stop: 06/05/25 00:18 Last Admin: 06/05/25 00:34 Dose: 40 meq Documented By: RYAN Medical Decision Making Differential Diagnosis The differential diagnosis includes, but is not limited to: acute intracranial bleed, meningitis, encephalitis, mass or mass effect, sinusitis, infection, tumor, headache, temporal arteritis and carbon monoxide exposure, and migraine. Laboratory Data 06/04/25 21:30 06/04/25 21:30 Lab Results 06/04/25 06/04/25 Range/Units 21:30 21:36 WBC 9.04 (4.8-10.8) K/ul RBC 4.88 (4.20-5.40) M/uL Hgb 12.1 (12.0-16.0) g/dl POC Hgb 13.3 (12.0-16.0) g/dl Hct 38.1 (37.0-47.0) % POC Hct 39 (37-47) % MCV 78.1 L (80.0-100.0) fL MCH 24.8 L (25.0-34.0) pg MCHC 31.8 L (32.0-36.0) g/dL RDW Std Deviation 44.8 (36.4-46.3) fL RDW Coeff of Mikhail 15.7 H (11.5-14.5) % Plt Count 311 (130-400) K/uL MPV 9.0 L (9.4-12.4) fL Immature Gran % (Auto) 0.2 % Neut % (Auto) 56.3 % Lymph % (Auto) 35.4 % Taylor % (Auto) 6.3 % Eos % (Auto) 1.5 % Baso % (Auto) 0.3 % Neut # (Auto) 5.08 (1.40-6.50) K/uL Lymph # (Auto) 3.20 (1.20-3.40) K/uL Taylor # (Auto) 0.57 (0.11-0.59) K/uL Eos # (Auto) 0.14 (0.00-0.50) K/uL Baso # (Auto) 0.03 (0.00-0.20) K/uL Immature Gran # (Auto) 0.02 (0.01-0.20) K/uL PT 10.3 (9.0-12.0) Seconds INR 0.9 (0.9-1.1) APTT 28 (21-31) Seconds PTT Ratio 1.0 POC Sodium 141 (135-144) mmol/L Sodium 138 (136-145) mmol/L POC Potassium 3.4 (3.3-5.0) mmol/L Potassium 3.3 L (3.5-5.1) mmol/L POC Chloride 104 (101-112) mmol/L Chloride 105 (98-107) mmol/L Carbon Dioxide 25 (21-32) mmol/L POC Total CO2 22 L (24-31) mmol/L Anion Gap 8 (3-11) POC Anion Gap 19.0 (16-25) mmol/L POC BUN 18 (7-18) mg/dl BUN 18 (6-23) mg/dl Creatinine 0.89 (0.6-1.2) mg/dl POC Creatinine 1.0 (0.6-1.3) mg/dl Est Cr Clr Drug Dosing 117.0 ml/min eGFR 85.58 BUN/Creatinine Ratio 20.2 H (10-20) Glucose 90 (70-99(Fasting)) mg/dl POC Glucose (other) 90 (70-99) mg/dl Calcium 9.5 (8.6-10.3) mg/dl POC Ioniz Calcium Mariana 1.16 (1.12-1.32) mmol/l Magnesium 1.9 (1.7-2.4) mg/dl Total Bilirubin 0.3 (0.2-1.0) mg/dl AST 14 (13-39) U/L ALT 18 (7-52) U/L Alkaline Phosphatase 76 (34-104) U/L Troponin I High Sens < 2.3 (0-14) pg/ml Total Protein 7.9 (6.0-8.3) gm/dl Albumin 4.4 (3.4-5.0) gm/dl Globulin 3.5 (2.5-4.0) gm/dl Albumin/Globulin Ratio 1.3 (0.9-2) TSH 1.419 (0.300-4.500) uIu/ml HCG, Qual Negative (Negative) Imaging Data Radiologist's Impression: Head CT 06/04/25 21:20 Exam(s): CT HEAD Without Contrast EXAM: CT Head Without Intravenous Contrast CLINICAL HISTORY: Reason for exam: neuro deficit, acute stroke suspected. TECHNIQUE: Axial computed tomography images of the head/brain without intravenous contrast. CTDI is 37.51 mGy and DLP is 546.36 mGy-cm. Automated exposure control was utilized for the study. A dose lowering technique was utilized adhering to the principles of ALARA. COMPARISON: July 28, 2019. FINDINGS: Brain: Unremarkable. No hemorrhage. No significant white matter disease. No edema. Small right choroidal fissure cyst. Bilateral cerebellar tonsillar ectopia. Ventricles: Unremarkable. No ventriculomegaly. Bones/joints: Unremarkable. No acute fracture. Soft tissues: Unremarkable. Sinuses: Unremarkable as visualized. No acute sinusitis. Mastoid air cells: Unremarkable as visualized. No mastoid effusion. IMPRESSION: No evidence of acute intracranial Pathology. Electronically signed by: Silvia Wells MD 06/04/25 23:09 PM Head CTA 06/04/25 21:20 Exam(s): CTA HEAD With Contrast IV Amt: 115 cc opti 320 EXAM: CT Angiography Head With Intravenous Contrast CLINICAL HISTORY: Reason for exam: neuro deficit, acute stroke suspected. TECHNIQUE: Axial computed tomographic angiography images of the head with intravenous contrast. CTDI is 37.51 mGy and DLP is 546.36 mGy-cm. Automated exposure control was utilized for the study. A dose lowering technique was utilized adhering to the principles of ALARA. MIP reconstructed images were created and reviewed. CONTRAST: Patient received 115 cc opti 320 of IV contrast COMPARISON: Prior CTA from 07-28-2019 FINDINGS: The dural venous sinuses are patent. Right internal carotid artery: No acute findings. Intracranial segment is patent with no significant stenosis. No aneurysm. Right anterior cerebral artery: Unremarkable. No occlusion or significant stenosis. No aneurysm. Right middle cerebral artery: Unremarkable. No occlusion or significant stenosis. No aneurysm. Right posterior cerebral artery: Unremarkable. No occlusion or significant stenosis. No aneurysm. Right vertebral artery: Unremarkable as visualized. Left internal carotid artery: No acute findings. Intracranial segment is patent with no significant stenosis. No aneurysm. Left anterior cerebral artery: Unremarkable. No occlusion or significant stenosis. No aneurysm. Left middle cerebral artery: Unremarkable. No occlusion or significant stenosis. No aneurysm. Left posterior cerebral artery: Unremarkable. No occlusion or significant stenosis. No aneurysm. Left vertebral artery: Unremarkable as visualized. Basilar artery: Unremarkable. No occlusion or significant stenosis. No aneurysm. IMPRESSION: Negative CT angiogram of the head. Electronically signed by: Silvia Wells MD 06/04/25 23:05 PM Neck CTA 06/04/25 21:20 Exam(s): CTA NECK With Contrast IV Amt: 115 cc opti 320 EXAM: CT Angiography Neck With Intravenous Contrast CLINICAL HISTORY: Reason for exam: neuro deficit, acute stroke suspected. TECHNIQUE: Routine carotid CT angiography protocol was performed with intravenous contrast. NASCET criteria using the distal ICAs for comparison were used for evaluation of stenoses. CTDI is 12.46 mGy and DLP is 546.36 mGy-cm. Automated exposure control was utilized for the study. A dose lowering technique was utilized adhering to the principles of ALARA. MIP reconstructed images were created and reviewed. CONTRAST: Patient received 115 cc opti 320 of IV contrast COMPARISON: None. FINDINGS: VASCULATURE: Right common carotid artery: Unremarkable. No occlusion or significant stenosis. No dissection. Right internal carotid artery: Unremarkable. Extracranial segment is patent with no occlusion or significant stenosis. No dissection. Right external carotid artery: Unremarkable. No occlusion. Right vertebral artery: Unremarkable. No occlusion or significant stenosis. No dissection. Left common carotid artery: Unremarkable. No occlusion or significant stenosis. No dissection. Left internal carotid artery: Unremarkable. Extracranial segment is patent with no occlusion or significant stenosis. No dissection. Left external carotid artery: Unremarkable. No occlusion. Left vertebral artery: Unremarkable. No occlusion or significant stenosis. No dissection. NECK: Bones/joints: There is a critical spinal canal stenosis at C6-7. Recommend MRI of the cervical spine to evaluate for myelopathy. No acute fracture. Soft tissues: Prominent cervical lymph nodes and lingual tonsils. Lung apices: Clear. CAROTID STENOSIS REFERENCE USING NASCET CRITERIA: % ICA stenosis = (1 - narrowest ICA diameter/diameter of distal cervical ICA) x 100. Mild - <50% stenosis. Moderate - 50-69% stenosis. Severe - 70-94% stenosis. Near occlusion - 95-99% stenosis. Occluded - 100% stenosis. IMPRESSION: Negative CTA neck. Electronically signed by: Silvia Wells MD 06/04/25 23:14 PM MDM Narrative Physical exam and history were performed. Nursing notes, EMR, and Medication List were personally reviewed. No social concerns were identified as barriers to patients care. History was provided by the Patient. Patient appears to have headache with numbness in her left arm. Patient seen immediately on arrival to her room. IV access was established and labs were obtained. Patient was hydrated with normal saline and given IV Tylenol. She was sent to CT scan for imaging of her head and neck. Case discussed with my attending. An order was placed for continuous cardiac monitoring. The monitor shows a rate of 62 with normal sinus rhythm. Patient's blood work is as above and was reviewed. She does not have significant elevated white blood cell count, gross anemia, bandemia, or significant electrolyte imbalance. Transaminases not diagnostic. Magnesium normal. Troponin x 1 is negative. She is not . CT and CTAs of the head and neck were performed and independently reviewed by myself and radiology showing no acute strokelike findings. On reevaluation patient's head symptoms seem to have improved, and her visual disturbance is also somewhat improved. She continues with subjective numbness to her left arm including all fingers of the left hand. Escalation of care was considered, and felt to be necessary. The cause of her symptoms is not definitive here in the ER, and she likely needs additional imaging and possible neuro evaluation. Case was discussed with the on-call hospitalist team, who agreed to evaluate the patient here in the ER. Please see their dictation for further patient course, plan, and disposition. The chart was completed utilizing [employer] Voice Recognition Software. Grammatical errors, random word insertions, pronoun errors, and incomplete sentences are an occasional consequence of this system due to software limitations, ambient noise, and hardware issues. Any formal questions or concerns about the content, text, or information contained within the body of this dictation should be directly addressed to the provider for clarification. Impression & Plan Left arm numbness, Headache, Visual disturbance Discharge Plan Visit Data Chief Complaint: Headache Stated Complaint: HEADACHE, ARM NUMBNESS ED Provider: Grayson Jacob ED Midlevel Provider: Daryl Valle Discharge Problem: Left arm numbness, Headache, Visual disturbance Patient Disposition: Home - Self-Care Condition: Good Forms Stand Alone Forms: [facility], Important Visit Information Prescriptions Prescriptions: No Action escitalopram oxalate 10 mg tablet 10 mg PO QAM acetaminophen 325 mg Tablet 325 mg PO QID PRN (Reason: Pain) ibuprofen 200 mg Tablet 200 mg PO TID PRN (Reason: Pain) Referrals Referrals: Abbi Muñoz DO [Primary Care Provider] -
[2025-06-04] MEDS: ONDANSETRON INJ 2 MG/ML 2 ML VIAL IV STA (21:54)
[2025-06-04] MEDS: ACETAMINOPHEN 1,000 MG/100 ML VIAL IV STA (21:54)
[2025-06-04] MEDS: SODIUM CHLORIDE 0.9% 1,000 ML IV ONE (21:55)
[2025-06-04 21:56] LABS: Hematocrit (blood only) 38.1 % (37.0-47.0); Hemoglobin 12.1 g/dl (12.0-16.0); Immature Granulocytes # (auto) 0.02 K/uL (0.01-0.20); Immature Granulocytes % (auto) 0.2 %; Mean Corpuscular Hemoglobin 24.8 pg (25.0-34.0); Mean Corpuscular Volume 78.1 fL (80.0-100.0); Platelet Count 311 K/uL (130-400); RDW Standard Deviation 44.8 fL (36.4-46.3); Red Blood Count 4.88 M/uL (4.20-5.40); White Blood Count 9.04 K/ul (4.8-10.8)
[2025-06-04 22:10] LABS: Pregnancy Test, Serum Negative (Negative)
[2025-06-04 22:14] LABS: Alanine Aminotransferase 18 U/L (7-52); Albumin Globulin Ratio 1.3 (0.9-2); Alkaline Phosphatase 76 U/L (34-104); Anion Gap 8 (3-11); Bilirubin,Total 0.3 mg/dl (0.2-1.0); Blood Urea Nitrogen 18 mg/dl (6-23); Calcium 9.5 mg/dl (8.6-10.3); Carbon Dioxide 25 mmol/L (21-32); Chloride 105 mmol/L (98-107); Creatinine Clr Calc Pharmacy 117.0 ml/min; Globulin 3.5 gm/dl (2.5-4.0); Glucose 90 mg/dl (70-99(Fasting)); Magnesium 1.9 mg/dl (1.7-2.4); Potassium 3.3 mmol/L (3.5-5.1); Sodium 138 mmol/L (136-145); Total Protein 7.9 gm/dl (6.0-8.3)
[2025-06-04 22:25] LABS: INR 0.9 (0.9-1.1); Partial Thromboplastin Time 28 Seconds (21-31); Prothrombin Time 10.3 Seconds (9.0-12.0)
[2025-06-04 22:29] LABS: Thyroid Stimulating Hormone 1.419 uIu/ml (0.300-4.500)
--- NOTE | 2025-06-04 23:06 | CT Scan Report ---
Exam(s): CTA HEAD With Contrast IV Amt: 115 cc opti 320 EXAM: CT Angiography Head With Intravenous Contrast CLINICAL HISTORY: Reason for exam: neuro deficit, acute stroke suspected. TECHNIQUE: Axial computed tomographic angiography images of the head with intravenous contrast. CTDI is 37.51 mGy and DLP is 546.36 mGy-cm. Automated exposure control was utilized for the study. A dose lowering technique was utilized adhering to the principles of ALARA. MIP reconstructed images were created and reviewed. CONTRAST: Patient received 115 cc opti 320 of IV contrast COMPARISON: Prior CTA from 07-28-2019 FINDINGS: The dural venous sinuses are patent. Right internal carotid artery: No acute findings. Intracranial segment is patent with no significant stenosis. No aneurysm. Right anterior cerebral artery: Unremarkable. No occlusion or significant stenosis. No aneurysm. Right middle cerebral artery: Unremarkable. No occlusion or significant stenosis. No aneurysm. Right posterior cerebral artery: Unremarkable. No occlusion or significant stenosis. No aneurysm. Right vertebral artery: Unremarkable as visualized. Left internal carotid artery: No acute findings. Intracranial segment is patent with no significant stenosis. No aneurysm. Left anterior cerebral artery: Unremarkable. No occlusion or significant stenosis. No aneurysm. Left middle cerebral artery: Unremarkable. No occlusion or significant stenosis. No aneurysm. Left posterior cerebral artery: Unremarkable. No occlusion or significant stenosis. No aneurysm. Left vertebral artery: Unremarkable as visualized. Basilar artery: Unremarkable. No occlusion or significant stenosis. No aneurysm. IMPRESSION: Negative CT angiogram of the head. Electronically signed by: Silvia Wells MD 06/04/25 23:05 PM
--- NOTE | 2025-06-04 23:10 | CT Scan Report ---
Exam(s): CT HEAD Without Contrast EXAM: CT Head Without Intravenous Contrast CLINICAL HISTORY: Reason for exam: neuro deficit, acute stroke suspected. TECHNIQUE: Axial computed tomography images of the head/brain without intravenous contrast. CTDI is 37.51 mGy and DLP is 546.36 mGy-cm. Automated exposure control was utilized for the study. A dose lowering technique was utilized adhering to the principles of ALARA. COMPARISON: July 28, 2019. FINDINGS: Brain: Unremarkable. No hemorrhage. No significant white matter disease. No edema. Small right choroidal fissure cyst. Bilateral cerebellar tonsillar ectopia. Ventricles: Unremarkable. No ventriculomegaly. Bones/joints: Unremarkable. No acute fracture. Soft tissues: Unremarkable. Sinuses: Unremarkable as visualized. No acute sinusitis. Mastoid air cells: Unremarkable as visualized. No mastoid effusion. IMPRESSION: No evidence of acute intracranial Pathology. Electronically signed by: Silvia Wells MD 06/04/25 23:09 PM
--- NOTE | 2025-06-04 23:15 | CT Scan Report ---
Exam(s): CTA NECK With Contrast IV Amt: 115 cc opti 320 EXAM: CT Angiography Neck With Intravenous Contrast CLINICAL HISTORY: Reason for exam: neuro deficit, acute stroke suspected. TECHNIQUE: Routine carotid CT angiography protocol was performed with intravenous contrast. NASCET criteria using the distal ICAs for comparison were used for evaluation of stenoses. CTDI is 12.46 mGy and DLP is 546.36 mGy-cm. Automated exposure control was utilized for the study. A dose lowering technique was utilized adhering to the principles of ALARA. MIP reconstructed images were created and reviewed. CONTRAST: Patient received 115 cc opti 320 of IV contrast COMPARISON: None. FINDINGS: VASCULATURE: Right common carotid artery: Unremarkable. No occlusion or significant stenosis. No dissection. Right internal carotid artery: Unremarkable. Extracranial segment is patent with no occlusion or significant stenosis. No dissection. Right external carotid artery: Unremarkable. No occlusion. Right vertebral artery: Unremarkable. No occlusion or significant stenosis. No dissection. Left common carotid artery: Unremarkable. No occlusion or significant stenosis. No dissection. Left internal carotid artery: Unremarkable. Extracranial segment is patent with no occlusion or significant stenosis. No dissection. Left external carotid artery: Unremarkable. No occlusion. Left vertebral artery: Unremarkable. No occlusion or significant stenosis. No dissection. NECK: Bones/joints: There is a critical spinal canal stenosis at C6-7. Recommend MRI of the cervical spine to evaluate for myelopathy. No acute fracture. Soft tissues: Prominent cervical lymph nodes and lingual tonsils. Lung apices: Clear. CAROTID STENOSIS REFERENCE USING NASCET CRITERIA: % ICA stenosis = (1 - narrowest ICA diameter/diameter of distal cervical ICA) x 100. Mild - <50% stenosis. Moderate - 50-69% stenosis. Severe - 70-94% stenosis. Near occlusion - 95-99% stenosis. Occluded - 100% stenosis. IMPRESSION: Negative CTA neck. Electronically signed by: Silvia Wells MD 06/04/25 23:14 PM
--- NOTE | 2025-06-05 00:18 | History & Physical Report ---
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 Imaging in the ED revealed bilateral cerebellar tonsillar ectopia and critical cervical stenosis at C6-C7. Being admitted for further workup including MRI of brain and cervical spine. Differential includes complicated migraine, CVA, TIA, cervical radiculopathy, Earline malformation, MS (however unlikely), Low flow state (hypercoagulable panel sent). #headache/left arm numbness - Imaging in the ED revealed bilateral cerebellar tonsillar ectopia and critical cervical stenosis at C6-C7. Differential includes complicated migraine, CVA, TIA, cervical radiculopathy, Earline malformation, MS (unlikely), low flow state (hypercoagulable panel sent). - stroke without TNK order set - active ROM, no IVs left side, Q4H neuro checks - asa load given on admission - start ASA 81mg daily - Allow for permissive hypertension with goal parameters 220/110 until MRI resulted - hypercoagulable panel sent for possibility of low flow state MRI brain and MRI cervical spine are ordered and pending - Telemetry monitoring - lipid panel and A1C with AM labs - no orthospine rn interventional this week; consider outpatient follow up for cervical stenosis #HypokalemiaK+3.3, mag 1.9, renal function stable. Patient denies any recent GI losses, no diuretic use, adequate appetite. 40 mEq p.o. 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 Imaging in the ED revealed bilateral cerebellar tonsillar ectopia and critical cervical stenosis at C6-C7. has been for further workup including MRI of brain and cervical spine. Differential includes complicated migraine, CVA, TIA, cervical radiculopathy, Earline malformation, MS (however unlikely), Low flow state (hypercoagulable panel sent). Patient seen at bedside. She was at work when she began with feeling like her head was fuzzy and a sudden onset frontal headache which is now improved after Tylenol in the ED. She started with left arm pain which then turned into tingling and feeling like a band is around her arm, this is still present and unchanged. She denies any complete numbness or weakness. She also endorses feeling slightly dizzy and that she Mixing up her words however denies any difficulty finding words or slurred speech. Denies any facial droop. She denies any recent chest pain, shortness of breath, nausea, vomiting, diarrhea. She had a history of 1 migraine after having an epidural with childbirth however no other history of migraines. She stated she rarely even has a headache. Her grandfather did have a stroke, she is unclear what age he was when he had this. She does not have a history of hyperlipidemia, diabetes, not on any anticoagulation, no smoking history. She stated when she was younger they found something on her heart and she had frequent echocardiograms and Holter monitors for monitoring, she may have had an irregular rhythm but is unsure and it is now stable. She does use CPAP for sleep apnea. She wishes to be full code. She did note that she went to the chiropractor on Monday, she normally goes every 2 weeks for low back pain. She denies any upper/cervical spine pain. Allergies Allergy/AdvReac Type Severity Reaction Status Date / Time No Known Allergies Allergy Verified 06/04/25 22:54 Home Medications Medication Instructions Recorded Confirmed Type acetaminophen 325 mg tablet 325 mg PO QID PRN Pain 03/06/25 06/04/25 History ibuprofen 200 mg tablet 200 mg PO TID PRN Pain 03/06/25 06/04/25 History escitalopram oxalate 10 mg tablet 10 mg PO QAM 06/04/25 06/04/25 History Past Med/Surg History Problem List (Updated 06/05/25 @ 00:55 by Daryl Valle PA-C) Visual disturbance (Acute) Headache (Acute) Left arm numbness (Acute) Hypokalemia Left arm numbness Headache Menorrhagia Obstructive sleep apnea GERD (gastroesophageal reflux disease) Graves' disease in remission Increased endometrial stripe thickness Endometrial polyp Thyroid nodule Hyperthyroidism PAC (premature atrial contraction) Palpitations Iron deficiency Morbid obesity Vitamin D deficiency Dyslipidemia Depression Anxiety Medical History Anxiety and depression hx- denies current issues Dyslipidemia diet controlled, no meds Hx of iron deficiency denies currently History of palpitations r/t graves disease; discharged from [facility] History of thyroid nodule was being monitored; stable Graves' disease in remission GERD (gastroesophageal reflux disease) stable JERO (obstructive sleep apnea) CPAP nightly History of COVID-19 ~12/2021- no hosp; resolved History of varicella childhood Surgical History S/P right knee arthroscopy x 2, 2011 & approx 2016 S/P wisdom tooth extraction S/P appendectomy Family History Grandmother (Maternal) Anxiety Colorectal cancer Depression Osteoporosis Dyslipidemia Grandfather (Maternal) Colorectal cancer Coronary heart disease Myocardial infarction, Onset Age: 39 S/P CABG (coronary artery bypass graft) Hypertension Grandmother (Paternal) Breast cancer Dyslipidemia Father Cancer Oral Agent orange exposure Oral cancer Grandfather (Paternal) Hypertension Heart disease Mother Ovarian cyst Bladder cancer Kidney stone Dyslipidemia Endometriosis Other Family history of multiple gestation Denies family history of Ovarian cancer Prostate cancer Social History Smoking Status: Never smoker Second Hand Exposure: Yes (hx); Do You Dip or Chew Tobacco: No; Hx Alcohol Use: Yes Alcohol Intake Frequency: Monthly or Less Hx Substance Use: No Preferred Language: German Communication Ability: Effective Visual Impairment: No Limitations Hearing Ability: Normal Watch Parts Grinder Required: No Beliefs That Will Affect Care: None marital status: Current Living Situation: Spouse and Family Current Living Situation Comment: 2 children current occupational status: employed current occupation: [employer] How many Children do You have: 2 Feels Safe at Home: Yes Childhood Exposure to Second-Hand Smoke: Yes Diet: regular Diet Comment: regular caffeine: Yes during the past year weight has: remained stable Dental Care, Regularly: No Physical Activity Frequency: Daily Physical Activity Frequency Comment: 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 Non-toxic appearing. HEENT- EOMI, mucous membranes moist. Hearing grossly intact. Heart-normal S1 and S2. No murmurs, rubs or gallops. Lungs-clear bilaterally, no respiratory distress, no accessory muscle use. Abdomen-normal bowel sounds and soft. No ascites noted. Non-tender. Extremities- no clubbing, cyanosis, or edema. Rheumatologic-normal range of motion. Psychiatric-normal affect. Musculoskeletal: no cyanosis or clubbing, extremities motor strength 5/5 Neurologic: PERRL, EOMI, accommodation nl, no face palsy, no dysarthria no focal motor deficits Speech / Cognition: normal speech Results & Data Results & Data Vital Signs (Past 12 Hours) Vital Signs Temp Pulse Pulse Resp BP BP Pulse Ox 06/04/25 23:26 70 20 135/77 97 06/04/25 22:30 73 17 125/75 99 06/04/25 22:05 83 06/04/25 21:15 36.6 C 89 18 156/86 H 97 O2 Del Method 06/04/25 23:26 Room Air 06/04/25 22:30 Room Air 06/04/25 22:05 06/04/25 21:15 Room Air Laboratory Results Reviewed CBC, CMP, magnesium Diagnostic Findings reviewed head CT, head CTA, neck CTA Medications Administered ED1G IV Tylenol, Zofran 4 Mg IV, 1L NSS bolus Code Status & VTE Plan Code Status full code VTE Prophylaxis Plan VTE Prophylaxis will be ordered: Yes Supervising Physician Co-Signing Physician Notes Attending addendum: I have physically seen this patient, have supervised the SAMUEL's activities, and agree with the H&P unless as otherwise noted. Assessment and Plan: The patient is a 39-year-old female with past medical history including GERD, Graves' disease in remission x 1 year, JERO, hyperparathyroidism, PACs, palpitations, dyslipidemia, depression and anxiety. She presents to the emergency department with the acute onset of headache, and left arm tingling that began at 830 this evening while at work. At this time, headache has resolved spontaneously, but left arm tingling continues, that she describes as sensation similar to when the blood pressure cuff is being expanded. She reports having gone to a chiropractor yesterday for routine manipulation of her lumbar spine. She denies any weakness or tingling in right arm or bilateral legs. Strokelike symptoms- Patient reports acute onset of frontal headache, and left arm tingling around 830 this evening while at work. The headache has resolved spontaneously, but the left arm tingling is still present. CT scan of head without contrast was negative, but did show bilateral cerebellar tonsillar ectopia. CTA head was negative CTA neck showed critical stenosis at C6-7, with recommendation for MRI to evaluate for possible myelopathy MRI of brain without contrast is negative MRI of cervical spine pending Differential including but not limited to: Complicated migraine, cerebral artery vasospasm, TIA, CVA, low flow state, cervical radiculopathy, Chiari malformation, multiple sclerosis/demyelinating disease. Will give aspirin 324 mg now, then 81 mg every morning Give first dose of atorvastatin this evening Hypercoagulable workup, and repeat laboratories CBC with differential, BMP and magnesium levels in the a.m. Anxiety and depression- Continue escitalopram 10 mg daily Hypokalemia- Potassium 3.3 on admission Giving Klor-Con 40 mill equivalents p.o., and recheck laboratories in the a.m. PG Care Time/CCT Total # of Minutes Spent Total Time Spent with Patient: Total time spent is greater than 50% in coordination of care (as documented) at patient's floor/unit and/or counseling patient: Coding Level of Care Code 24361 INT INP/OBS CARE 3/75MIN Diagnoses Headache R51.9 Left arm numbness R20.0 Hypokalemia E87.6 Obstructive sleep apnea G47.33
[2025-06-05] MEDS: POTASSIUM CHLORIDE CRTAB 20 MEQ TABCR PO STA (00:34)
[2025-06-05] MEDS: ASPIRIN CHEW 324 MG PO STA (00:34)
[2025-06-05] MEDS: ATORVASTATIN 40 MG TAB PO STA (01:46)
--- NOTE | 2025-06-05 03:05 | Magnetic Resonance Report ---
EXAM: MR brain wo con CLINICAL HISTORY: stroke workup TECHNIQUE: Multisequential and multiplanar images of the brain were submitted for review without contrast. COMPARISON: none FINDINGS: The brain shows normal morphology, signal intensity, and volume for age. No focal parenchymal lesions are seen. No intracranial hemorrhage, mass effect, midline shift, extra-axial collection, or hydrocephalus is identified. Ventricles, sulci, and basal cisterns are symmetric and normal in size and configuration. Diffusion-weighted sequences show no evidence of acute ischemic infarction. Midline structures including the pituitary gland, corpus callosum, pineal region, and brainstem are unremarkable. The craniovertebral junction is within normal limits. No calvarial abnormalities are identified. The paranasal sinuses and mastoid air cells are clear. Orbital structures are unremarkable. Appropriate flow voids are present in the visualized intracranial vessels. IMPRESSION: 1. No acute ischemia, space occupying mass, or other acute intracranial pathology is demonstrated. Electronically signed by Celestine Mendoza 06-05-2025 03:05 AM
[2025-06-05] MEDS ORDERED: MELATONIN 3 MG TAB PO PRN (03:13)
[2025-06-05] MEDS ORDERED: ONDANSETRON INJ 2 MG/ML 2 ML VIAL IV PRN (03:13)
[2025-06-05] MEDS ORDERED: ACETAMINOPHEN 325 MG TAB PO PRN (03:13)
[2025-06-05] MEDS ORDERED: PHARMACIST DISCHARGE MED REC CONSULT PRN (03:13)
[2025-06-05] MEDS ORDERED: DOCUSATE SODIUM 100 MG CAP PO PRN (03:13)
--- NOTE | 2025-06-05 03:30 | Magnetic Resonance Report ---
EXAM: MR cervical spine wo con CLINICAL HISTORY: critical stenosis TECHNIQUE: Multisequential and multiplanar images of the cervical spine were submitted for review without contrast. COMPARISON: none FINDINGS: Loss of cervical lordosis. The cord is normal in caliber and signal. There is no cerebellar ectopia. The alignment of the cervical spine is within normal limits. Linear T1 and T2 hypointense line seen in dens with mild hyperintensity around it on STIR sequence- possibility of thin undisplaced linear fracture of dens. There is normal bone marrow signal demonstrated throughout the cervical spine. C2-C3: No disc bulge, mass effect on the cord or neuroforaminal narrowing. C3-C4: No disc bulge, mass effect on the cord or neuroforaminal narrowing. C4-C5: Mild disc bulge (2 mm) not causing any mass effect on the cord or neuroforaminal narrowing. Mild spinal canal stenosis (diameter = 9 mm) . C5-C6: Mild disc bulge (1.5 mm) not causing any mass effect on the cord or neuroforaminal narrowing. C6-C7: Mild disc bulge (2 mm) not causing any mass effect on the cord or neuroforaminal narrowing. Moderate spinal canal stenosis seen (diameter = 7.5 mm) . C7-T1: No disc bulge, mass effect on the cord or neuroforaminal narrowing. IMPRESSION: 1. Linear T1 and T2 hypointense line seen in dens with mild hyperintensity around it on STIR sequence- possibility of thin undisplaced linear fracture of dens. Advised further evaluation with CT cervical spine. 2. Mild disc bulge at C4-C7 level causing mild to moderate spinal canal stenosis without any mass effect on the cord. 3. Loss of cervical lordosis- likely due to paraspinal muscle spasm Electronically signed by Celestine Mendoza 06-05-2025 03:30 AM
[2025-06-05 04:00] VITALS: TEMP 97.5
[2025-06-05 04:55] LABS: Cholesterol 142.0 mg/dl (0-200); HDL Cholesterol 41.0 mg/dl; Magnesium 2.0 mg/dl (1.7-2.4); Triglycerides 48.0 mg/dl (0-150)
[2025-06-05 07:21] LABS: Hemoglobin A1C 5.5 % (4.5-5.6)
--- NOTE | 2025-06-05 08:14 | Discharge Summary ---
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 Imaging in the ED revealed bilateral cerebellar tonsillar ectopia and critical cervical s tenosis at C6-C7. Being admitted for further workup including MRI of brain and cervical spine. Differential includes complicated migraine, CVA, TIA, cervical radiculopathy, Earline malformation, MS (however unlikely), Low flow state (hypercoagulable panel sent). Harini was admitted for stroke workup of sudden onset left arm numbness. She was having ongoing numbness at time of her MRI which was negative and did not show evidence of stroke pathology. She did show signs of moderate spinal canal stenosis, symptoms were most likely due to cervical stenosis/radiculopathy. She had no strength loss or abnormal cord signal necessitating emergent surgical intervention. She was placed on a short course of steroids. Complex migraine was within the differential however given prolonged numbness and resolution of migraine this was thought to be less likely. Stroke was also thought to be less likely as she was still having symptoms at the time of her MRI which was normal. Risks and benefits of potentially starting preventative baby aspirin +/- atorvastatin were discussed at the bedside, and shared decision making this was deferred. She was discharged with outpatient follow-up to her PCP and orthopedic spine. Strict return precautions including any strength loss, worsening numbness, or worsening pain were discussed prior to discharge. #headache/left arm numbness Emergency department initial imaging showed bilateral cervical or tonsillar ectopia, concern for critical cervical stenosis C6-C7. - Follow-up C-spine MRI shows mild to moderate spinal canal stenosis at C4-C7 without any mass effect on the cord. No emergent surgical indication for decompression Linear T1/T2 hypointense line seen in dens with mild hyperintensity on STIR sequence which could represent thin nondisplaced linear fracture of the dens. Further recommendation was CTC-spine was recommended. Based on linear density finding above patient placed in c-collar and CTC- spine ordered, subsequently revealed linear density was artifact. No need for c-collar this was removed MRIbrain shows no evidence of stroke, she did have ongoing numbness without strength loss in her left hand at time of MRI. Hypertension has resolved Hypercoagulable panel for low flow state is pending A1c 5.5%, normal Lipid panel with LDL 91, total cholesterol 142. Triglycerides 48. #HypokalemiaK+3.3, mag 1.9, renal function stable. Patient denies any recent GI losses, no diuretic use, adequate appetite. 40 mEq p.o. 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 Imaging in the ED revealed bilateral cerebellar tonsillar ectopia and critical cervical stenosis at C6-C7. has been for further workup including MRI of brain and cervical spine. Differential includes complicated migraine, CVA, TIA, cervical radiculopathy, Earline malformation, MS (however unlikely), Low flow state (hypercoagulable panel sent). Patient seen at bedside. She was at work when she began with feeling like her head was fuzzy and a sudden onset frontal headache which is now improved after Tylenol in the ED. She started with left arm pain which then turned into tingling and feeling like a band is around her arm, this is still present and unchanged. She denies any complete numbness or weakness. She also endorses feeling slightly dizzy and that she Mixing up her words however denies any difficulty finding words or slurred speech. Denies any facial droop. She denies any recent chest pain, shortness of breath, nausea, vomiting, diarrhea. She had a history of 1 migraine after having an epidural with childbirth however no other history of migraines. She stated she rarely even has a headache. Her grandfather did have a stroke, she is unclear what age he was when he had this. She does not have a history of hyperlipidemia, diabetes, not on any anticoagulation, no smoking history. She stated when she was younger they found something on her heart and she had frequent echocardiograms and Holter monitors for monitoring, she may have had an irregular rhythm but is unsure and it is now stable. She does use CPAP for sleep apnea. She wishes to be full code. She did note that she went to the chiropractor on Monday, she normally goes every 2 weeks for low back pain. She denies any upper/cervical spine pain. Discharge Exam General: A&Ox3. NAD. Cooperative. HEENT: Atraumatic, normocephalic. Vision and hearing grossly intact CRANIAL NERVES: II: Pupils equal and reactive, no relative afferent pupillary defect III, IV, : EOM intact, no gaze preference or deviation, no nystagmus. VII: no asymmetry, no nasolabial fold flattening VIII: normal hearing to speech IX, X: normal palatal elevation, no uvular deviation XII: midline tongue protrusion MOTOR: RUE: 5/5 Shoulder internal rotation, external rotation, flexion, extension, abduction, adduction 5/5 Elbow flexion/extension, wrist flexion/extension 5/5 round kiln drawer strength, finger flexion/extension, interosseus LUE: 5/5 Shoulder internal rotation, external rotation, flexion, extension, abduction, adduction 5/5 Elbow flexion/extension, wrist flexion/extension 5/5 round kiln drawer strength, finger flexion/extension, interosseus SENSORY: Qualitatively decreased to soft touch in left upper extremity. Otherwise intact Discharge Plan Discharge Items Patient Disposition: Home - Self-Care Reason For Visit: CVA WORK UP Discharge Diagnosis: Cervical Stenosis/Radiculopathy Condition on Discharge: Good Activity: Per Instructions section Non-emergency contact: Primary Care Provider Call non-emergency contact if: you have any medication questions and your symptoms worsen Follow-up/Referrals: Abbi Muñoz DO [Primary Care Provider] - Bk Marquez DO [Surgeon] - Diet: Regular Addtl Attending Provider Instructions: You are seen in the ER for sudden onset headache with left arm tingling. There was concern for severe spinal stenosis on your initial ER imaging A follow-up MRIbrain showed no evidence of stroke. Your C-spine MRI did show moderate spinal canal stenosis at C4-C7 without any mass effect or abnormal cord signal. A linear hypointense line was seen which could have represented a thin nondisplaced linear fracture of the dens. You are placed in a cervical collar until CTC-spine imaging could be completed, this imaging was complete and showed the previously noted linear abnormality was artifactual and there was no true fracture abnormality. Your headache improved. Your blood pressure normalized. The most likely cause of your symptoms was cervical radiculopathy. Stroke is much less likely as your MRI was normal and you were still experiencing numbness at the time of your MRI test. Complex migraine is possible, but again less likely due to duration of symptoms which were persistent after resolution of your migraines. Risk/Benefits of aspirin as a preventative measure were discussed but deferred on shared decision making due to lower likelihood of this An appointment is being made for you to follow-up with orthopedic spine due to your moderate spinal canal stenosis as outpatient. There was no abnormal cord signal, critical stenosis, or strength loss necessitating emergent inpatient evaluation. If you develop worsening pain, strength loss in any extremity, or worsening numbness/tingling please seek immediate reevaluation in the emergency department. Due to suspected radicular symptoms you have been started on a brief course of steroids. You may take dexamethasone 6 mg daily for 5 days. Please follow-up with your primary care provider/orthopedic spine for further recommendations. Your potassium levels were slightly low. You received potassium supplementation during admission. Please have a recheck of your electrolyte levels (BMP) in 1 week by your primary care provider. If you develop any new or worsening symptoms including fever, chills, sweats, chest pain, chest pressure, difficulty breathing, uncontrolled nausea/vomiting, rash, wheezing, passing out or nearly passing out, bleeding, black/bloody bowel movements, or other new or concerning symptoms please call your primary care physician, or call 911 for re-evaluation in the emergency department if you are very concerned. Pending Studies at Discharge: No Stand-Alone Forms: [facility], Smoking Cessation Medications and DC Order Prescriptions: New dexamethasone 6 mg tablet 6 mg PO DAILY Qty: 5 0RF Continued escitalopram oxalate 10 mg tablet 10 mg PO QAM acetaminophen 325 mg Tablet 325 mg PO QID PRN (Reason: Pain) ibuprofen 200 mg Tablet 200 mg PO TID PRN (Reason: Pain) Discharge Orders: Discharge Order (Routine); Ordered 06/05/25 Ordered By: Chip High Admission Data Admit Date/Time: 06/05/25 00:38 Attending Provider: Chip High Admit Provider: Noel Salazar Primary Care Provider: Abbi Muñoz Other Providers: Noel Salazar; Mendel Alberts Hospital Stay Data Consultations 06/04/25 23:54 ED Decision to Admit Stat 06/05/25 06:26 Consult Neurology Routine Diagnostic Imagining Performed 06/04/25 21:20 CT angio head w con Stat CT angio neck with con Stat CT head/brain wo con Stat 06/05/25 00:17 MR cervical spine wo con Urgent MRI Brain [MR brain wo con] Urgent Discharge Instructions Given to Patient (Per Discharging Provider) You are seen in the ER for sudden onset headache with left arm tingling. There was concern for severe spinal stenosis on your initial ER imaging A follow-up MRIbrain showed no evidence of stroke. Your C-spine MRI did show moderate spinal canal stenosis at C4-C7 without any mass effect or abnormal cord signal. A linear hypointense line was seen which could have represented a thin nondisplaced linear fracture of the dens. You are placed in a cervical collar until CTC-spine imaging could be completed, this imaging was complete and showed the previously noted linear abnormality was artifactual and there was no true fracture abnormality. Your headache improved. Your blood pressure normalized. The most likely cause of your symptoms was cervical radiculopathy. Stroke is much less likely as your MRI was normal and you were still experiencing numbness at the time of your MRI test. Complex migraine is possible, but again less likely due to duration of symptoms which were persistent after resolution of your migraines. Risk/Benefits of aspirin as a preventative measure were discussed but deferred on shared decision making due to lower likelihood of this An appointment is being made for you to follow-up with orthopedic spine due to your moderate spinal canal stenosis as outpatient. There was no abnormal cord signal, critical stenosis, or strength loss necessitating emergent inpatient evaluation. If you develop worsening pain, strength loss in any extremity, or worsening numbness/tingling please seek immediate reevaluation in the emergency department. Due to suspected radicular symptoms you have been started on a brief course of steroids. You may take dexamethasone 6 mg daily for 5 days. Please follow-up with your primary care provider/orthopedic spine for further recommendations. Your potassium levels were slightly low. You received potassium supplementation during admission. Please have a recheck of your electrolyte levels (BMP) in 1 week by your primary care provider. If you develop any new or worsening symptoms including fever, chills, sweats, chest pain, chest pressure, difficulty breathing, uncontrolled nausea/vomiting, rash, wheezing, passing out or nearly passing out, bleeding, black/bloody bowel movements, or other new or concerning symptoms please call your primary care physician, or call 911 for re-evaluation in the emergency department if you are very concerned. Total Time Total Time Spent Total Time Spent (In Minutes): Time spend day of discharge 40 minutes including direct patient care, documentation, review of labs and images, and coordination of care. Coding Level of Care Code 55032 INP/OBS DISCH >30 MIN Diagnoses Headache R51.9 Left arm numbness R20.0 Hypokalemia E87.6 Obstructive sleep apnea G47.33
--- NOTE | 2025-06-05 09:00 | CT Scan Report ---
CT SCAN OF THE CERVICAL SPINE CLINICAL HISTORY: Abnormal cervical spine MRI. Possible dens fracture. COMPARISON STUDY: MRI cervical spine June 05, 2025. CTA of the neck June 04, 2025. Cervical spine ra diographs December 23, 2018. TECHNIQUE: CT scan of the cervical spine is performed from the skull base to the upper thoracic spine . Images are reviewed in the axial, sagittal, and coronal planes. IV contrast was not administered fo r this examination. A dose lowering technique was utilized adhering to the principles of ALARA. CT DOSE: 464.94 mGy.cm FINDINGS: Skeletal structures: There is no evidence of fracture or subluxation involving the cervical spine. Th e possible dens fracture and MRI performed earlier today was artifactual. Vertebral body height and a lignment are maintained. The odontoid process and lateral masses are intact. The atlantoaxial articu lation is preserved. The spinous processes appear intact. Mild multilevel endplate osteophytosis is p resent. There is minimal multilevel disc space narrowing. Soft tissues: The prevertebral and paraspinous soft tissues are within normal limits. Calvarium: The visualized calvarium at the skull base appears intact. Brain parenchyma: Partially visualized brain parenchyma at the skull base is within normal limits. Lung apices: Clear as visualized. IMPRESSION: No acute cervical spine fracture or subluxation. The possible dens fracture on MRI perfor med earlier today was artifactual. ACT 112: Negative or not required by law. Electronically signed by: Guille Carcamo M.D. 06/05/2025 8:59 AM
[2025-06-05] MEDS: ASPIRIN 81 MG ECTAB PO SCH (09:05)
[2025-06-05] MEDS: ESCITALOPRAM OXALATE 10 MG TAB PO SCH (09:05)
[2025-06-05 09:21] VITALS: O2SAT 98
--- NOTE | 2025-06-05 09:33 | XCELERA ---
[id number]
[2025-06-05] MEDS ORDERED: STROKE PATIENT DISCHARGE STA (09:49)
[2025-06-05 11:18] VITALS: BP 136/69; PULSE 79; RESP 18
--- NOTE | 2025-06-06 04:41 | Electrocardiogram Report ---
Test Reason : Blood Pressure : */* mmHG Vent. Rate : 92 BPM Atrial Rate : 92 BPM P-R Int : 162 ms QRS Dur : 82 ms QT Int : 378 ms P-R-T Axes : 32 20 13 degrees QTcB Int : 467 ms Normal sinus rhythm Cannot rule out Anterior infarct (cited on or before 26-Jan-2023) Abnormal ECG When compared with ECG of 03-Sep-2024 17:40, No significant change was found Confirmed by Carlos Alberto Shepherd ([id number]) on 06/06/2025 4:40:59 AM Referred By: REFERRED SELF Confirmed By: Carlos Alberto Shepherd
== END 2025-06-05 10:30 | disposition home or self-care (01) ==
LOC: SUATTDRO → ED 21:14 → EDINP 21:14 → SUATTDRO 06-05 00:38 → EDINP 06-05 03:13